=== PATIENT | male | born 1955 | race Caucasian/White ===

== ENCOUNTER 2019-11-14 06:54 | Inpatient (IN) ==
[2019-11-14] MEDS ORDERED: *HR* Propofol 200 MG/20 ML VIAL IVP ONE ×2 (07:11→08:29)
[2019-11-14] MEDS ORDERED: Lidocaine -MPF 2% 2 ML VIAL ONE ×2 (07:12→07:13)
[2019-11-14] MEDS ORDERED: CeFAZolin Syr 2,000MG/20 ML 2,000 MG/20 ML SYRINGE IVPB ONE (07:26)
[2019-11-14] MEDS ORDERED: Albuterol 2.5 MG/3 ML NEBULIZER IH PRN (07:26)
[2019-11-14] MEDS ORDERED: Ringers Solution, Lactated 1,000 ML IVC SCH ×2 (07:30→10:37)
[2019-11-14] MEDS ORDERED: Ethanol\\Acetic Acid\\Na Ace\\Ben 1,000 ML IRRIG.SOLN IR ONE (07:34)
[2019-11-14] MEDS ORDERED: Ondansetron 4 MG/2 ML VIAL IVP ONE (07:49)
[2019-11-14] MEDS ORDERED: *HR* HYDROmorphone (PF) 1 MG/ML SYRINGE IVP PRN (07:49)
[2019-11-14] MEDS ORDERED: *HR* OxyCODONE Immed Rel 5 MG TABLET PO PRN ×2 (07:49→10:37)
[2019-11-14] MEDS ORDERED: *HR* Promethazine 25 MG/ML VIAL IVP PRN (07:49)
[2019-11-14] MEDS ORDERED: Ropivacaine/PF 0.5% 30 ML VIAL ONE (07:59)
[2019-11-14] MEDS ORDERED: Acetaminophen IV 1,000 MG/100 ML INFUS..BTL ONE (08:04)
[2019-11-14] MEDS ORDERED: EPHEDrine 50 MG/ML VIAL ONE (08:51)
[2019-11-14] MEDS ORDERED: Ondansetron 4 MG/2 ML VIAL ONE (08:57)
[2019-11-14] MEDS ORDERED: Dexamethasone 4 MG/ML VIAL ONE (08:57)
[2019-11-14] MEDS ORDERED: Ketorolac 30 MG/ML VIAL ONE (09:37)
[2019-11-14 10:32] LABS: Hematocrit 40.4 % (37.5-50.1); Hemoglobin 14.1 g/dL (12.9-16.9)
[2019-11-14] MEDS ORDERED: *HR* OxyCODONE/APAP 5/325 TABLET PO PRN (10:37)
[2019-11-14] MEDS ORDERED: Ondansetron 4 MG/2 ML VIAL IVP PRN (10:37)
[2019-11-14] MEDS ORDERED: Pyridostigmine Br 60 MG TABLET PO SCH (10:37)
[2019-11-14] MEDS ORDERED: Temazepam 15 MG CAPSULE PO PRN (10:37)
[2019-11-14] MEDS ORDERED: Budesonide/Formoterol 160/4.5 1 PUFF INH IH SCH (10:37)
[2019-11-14] MEDS ORDERED: Naloxone 0.4 MG/ML INJ IVP PRN (10:37)
[2019-11-14] MEDS ORDERED: MOM Conc 10 ML UD.LIQ PO PRN (10:37)
[2019-11-14] MEDS ORDERED: Sennosides 8.6 MG TABLET PO PRN (10:37)
[2019-11-14] MEDS ORDERED: Loratadine 10 MG TABLET PO PRN (10:37)
[2019-11-14] MEDS ORDERED: *HR* Enoxaparin 30 MG/0.3 ML SYRINGE SQ SCH ×2 (14:30→18:00)
[2019-11-14 14:59] VITALS: BP 107/76
== END 2019-11-14 16:11 | disposition home health service (06) | DRG 483 ==
LOC: SAMDAY 06:54 → 3NENU 10:24
PROVIDERS: ADMIT Orthopaedic Surgery; ATTEND Orthopaedic Surgery